=== PATIENT | male | born 1950 | race Caucasian/White ===

== ENCOUNTER → 2018-01-19 | Outpatient (CLI) | payer OTHER | LOC: LAB SHORT 12:13 → LAB EV 12:13 | DX: N30.01 Acute cystitis with hematuria (principal) | CPT/HCPCS: 87086 ==

== ENCOUNTER → 2019-01-16 | Outpatient (CLI) | payer OTHER | LOC: LAB 14:47 → LAB SHORT 14:47 | DX: N39.0 Urinary tract infection, site not specified (principal) | CPT/HCPCS: 87077; 87086; 87186 ==

== ENCOUNTER → 2020-07-18 | Outpatient (CLI) | payer OTHER ==
[2020-07-20 13:36] LABS: CORONAVIRUS (COVID19) CSH-NRL Negative (Negative)
== END ==
LOC: LAB SHORT 11:15
PROVIDERS: Family Medicine
DX: Z20.828 Contact with and (suspected) exposure to other viral communicable diseases (principal)
CPT/HCPCS: U0003

== ENCOUNTER → 2020-09-06 | Outpatient (CLI) | payer OTHER ==
[2020-09-06 12:11] LABS: BASOPHILS ABSOLUTE AUTO 0.02 K/mm3 (0.00-0.23); BASOPHILS PERCENT AUTO 0 % (0-2); EOSINOPHILS ABSOLUTE AUTO 0.06 K/mm3 (0.00-0.68); EOSINOPHILS PERCENT AUTO 1 % (0-6); Hematocrit 41.3 % (37.0-53.0); Hemoglobin 14.5 g/dL (13.5-17.5); IMMATURE GRAN ABSOLUTE AUTO 0.04 K/mm3 (0.00-0.10); IMMATURE GRAN PERCENT AUTO 1 % (0-1); LYMPHOCYTES ABSOLUTE AUTO 1.29 K/mm3 (0.84-5.20); LYMPHOCYTES PERCENT AUTO 15 % (21-46); MONOCYTES ABSOLUTE AUTO 0.79 K/mm3 (0.16-1.47); MONOCYTES PERCENT AUTO 9 % (4-13); Mean Corpuscular HGB 30.5 pg (26.0-34.0); Mean Corpuscular HGB Conc 35.1 g/dL (31.5-36.5); Mean Corpuscular Volume 87 fL (80-100); Mean Platelet Volume 9.7 fL (9.1-12.4); NEUTROPHILS ABSOLUTE AUTO 6.62 K/mm3 (1.96-9.15); NEUTROPHILS PERCENT AUTO 75 % (41-73); Platelet Count 216 K/mm3 (150-400); RDW Coefficient Variation 12.5 % (11.7-14.2); RDW Standard Deviation 39.8 fL (35.1-46.3); Red Blood Cell Count 4.75 M/mm3 (4.30-5.90); White Blood Cell Count 8.82 K/mm3 (4.00-11.30)
[2020-09-06 12:18] LABS: Albumin, Blood 3.8 g/dL (3.4-5.0); Anion Gap 10 mmol/L (6-16); Blood Urea Nitrogen 23 mg/dL (8-24); Bun/Creatinine Ratio 15.9 (12.0-20.0); CO2, Blood 25 mmol/L (21-32); Calcium, Blood 8.9 mg/dL (8.5-10.1); Chloride, Blood 103 mmol/L (98-108); Creatinine, Blood 1.45 mg/dL (0.60-1.20); Glomerular Filtration Rate 48 (60-); Glucose, Blood 109 mg/dL (70-99); Magnesium, Blood 1.8 mg/dL (1.6-2.4); Phosphorus, Blood 2.9 mg/dL (2.5-4.9); Potassium, Blood 4.2 mmol/L (3.5-5.5); Sodium, Blood 138 mmol/L (136-145)
== END ==
LOC: LAB 12:04 → LAB SHORT 12:04
PROVIDERS: Chiropractor
DX: N13.30 Unspecified hydronephrosis (principal); N39.0 Urinary tract infection, site not specified
CPT/HCPCS: 80069; 83735; 85025; 87077; 87086; 87186

== ENCOUNTER → 2021-04-12 | Outpatient (CLI) | payer OTHER | LOC: LAB SHORT 15:00 | DX: R30.9 Painful micturition, unspecified (principal) | CPT/HCPCS: 87077; 87086; 87186 ==

== ENCOUNTER → 2021-04-26 | Outpatient (CLI) | payer OTHER | END | disposition home or self-care (01) | LOC: LAB SHORT 12:04 | DX: N39.0 Urinary tract infection, site not specified (principal) | CPT/HCPCS: 87086 ==

== ENCOUNTER → 2022-03-19 | Outpatient (CLI) | payer OTHER ==
[~2022-03-19] MED LIST: CEPH250A PO; LOSA25 PO; Percocet 5-3251 EACH PO
[2022-03-19 13:37] LABS: Bun/Creatinine Ratio 16.4 (12.0-20.0); Calcium, Blood 9.2 mg/dL (8.5-10.1); Creatinine, Blood 1.65 mg/dL (0.60-1.20); Potassium, Blood 4.5 mmol/L (3.5-5.5)
== END | disposition home or self-care (01) ==
LOC: LAB SHORT 11:09 → LAB FUT 05-08 13:35
PROVIDERS: Urology
DX: N13.30 Unspecified hydronephrosis (principal)
CPT/HCPCS: 36415; 80048

== ENCOUNTER 2023-01-22 04:42 | Day surgery (SDC) | payer OTHER | END 2023-01-22 22:47 | disposition home or self-care (01) | LOC: WOUND 04:42 | DX: T81.31XD Disruption of external operation (surgical) wound, not elsewhere classified, subsequent encounter (principal); L97.112 Non-pressure chronic ulcer of right thigh with fat layer exposed; S71.101D Unspecified open wound, right thigh, subsequent encounter; Z89.611 Acquired absence of right leg above knee; Z85.51 Personal history of malignant neoplasm of bladder; X58.XXXD Exposure to other specified factors, subsequent encounter; Y83.9 Surgical procedure, unspecified as the cause of abnormal reaction of the patient, or of later complication, without mention of misadventure at the time of the procedure | CPT/HCPCS: A9270 ==

== ENCOUNTER 2023-01-29 02:03 | Day surgery (SDC) | payer OTHER | END 2023-01-29 22:54 | disposition home or self-care (01) | LOC: WOUND 02:03 | DX: T87.9 Unspecified complications of amputation stump (principal); S31.103D Unspecified open wound of abdominal wall, right lower quadrant without penetration into peritoneal cavity, subsequent encounter; L97.112 Non-pressure chronic ulcer of right thigh with fat layer exposed; S71.101D Unspecified open wound, right thigh, subsequent encounter; Z89.611 Acquired absence of right leg above knee; Z85.51 Personal history of malignant neoplasm of bladder | CPT/HCPCS: A9270 ==

== ENCOUNTER 2023-02-05 04:13 | Day surgery (SDC) | payer OTHER | END 2023-02-05 23:08 | disposition home or self-care (01) | LOC: WOUND 04:13 | DX: T87.9 Unspecified complications of amputation stump (principal); S31.103D Unspecified open wound of abdominal wall, right lower quadrant without penetration into peritoneal cavity, subsequent encounter; L97.112 Non-pressure chronic ulcer of right thigh with fat layer exposed; S71.101D Unspecified open wound, right thigh, subsequent encounter; Z89.611 Acquired absence of right leg above knee; Z85.51 Personal history of malignant neoplasm of bladder | CPT/HCPCS: A9270 ==

== ENCOUNTER 2023-02-12 01:29 | Day surgery (SDC) | payer OTHER | END 2023-02-12 23:20 | disposition home or self-care (01) | LOC: WOUND 01:29 | DX: S31.103D Unspecified open wound of abdominal wall, right lower quadrant without penetration into peritoneal cavity, subsequent encounter (principal); L97.112 Non-pressure chronic ulcer of right thigh with fat layer exposed; S71.101D Unspecified open wound, right thigh, subsequent encounter; Z89.611 Acquired absence of right leg above knee; Z85.51 Personal history of malignant neoplasm of bladder | CPT/HCPCS: G0463 ==

== ENCOUNTER 2023-02-19 02:59 | Day surgery (SDC) | payer OTHER | END 2023-02-19 22:58 | disposition home or self-care (01) | LOC: WOUND 02:59 | DX: S31.103D Unspecified open wound of abdominal wall, right lower quadrant without penetration into peritoneal cavity, subsequent encounter (principal); S71.101D Unspecified open wound, right thigh, subsequent encounter; L97.112 Non-pressure chronic ulcer of right thigh with fat layer exposed; Z89.611 Acquired absence of right leg above knee; Z85.51 Personal history of malignant neoplasm of bladder; X58.XXXD Exposure to other specified factors, subsequent encounter | CPT/HCPCS: G0463 ==

== ENCOUNTER 2023-02-26 02:28 | Day surgery (SDC) | payer OTHER | END 2023-02-26 23:11 | disposition home or self-care (01) | LOC: WOUND 02:28 | DX: S31.103D Unspecified open wound of abdominal wall, right lower quadrant without penetration into peritoneal cavity, subsequent encounter (principal); L97.112 Non-pressure chronic ulcer of right thigh with fat layer exposed; S71.101D Unspecified open wound, right thigh, subsequent encounter; Z89.611 Acquired absence of right leg above knee; Z85.51 Personal history of malignant neoplasm of bladder | CPT/HCPCS: G0463 ==

== ENCOUNTER → 2023-03-19 | Outpatient (CLI) | payer OTHER ==
[2023-03-19 14:29] LABS: C DIFFICILE DNA NEGATIVE (Negative)
== END ==
LOC: LAB 08:30 → LAB SHORT 08:30
PROVIDERS: Physician Assistant
DX: R19.7 Diarrhea, unspecified (principal); N39.0 Urinary tract infection, site not specified
CPT/HCPCS: 87493

== ENCOUNTER 2023-04-09 04:44 | Day surgery (SDC) | payer OTHER | END 2023-04-09 23:00 | disposition home or self-care (01) | LOC: WOUND 04:44 | DX: T81.31XA Disruption of external operation (surgical) wound, not elsewhere classified, initial encounter (principal); L97.112 Non-pressure chronic ulcer of right thigh with fat layer exposed; S71.101D Unspecified open wound, right thigh, subsequent encounter; Z89.611 Acquired absence of right leg above knee; Z85.51 Personal history of malignant neoplasm of bladder; X58.XXXD Exposure to other specified factors, subsequent encounter; Y83.8 Other surgical procedures as the cause of abnormal reaction of the patient, or of later complication, without mention of misadventure at the time of the procedure | CPT/HCPCS: G0463 ==

== ENCOUNTER → 2023-05-06 | Outpatient (CLI) | payer OTHER ==
[2023-05-06 13:12] LABS: Appearance, Urine Hazy (Clear); Bilirubin, Urine Neg (Neg); Blood, Urine 5+ (Neg); Color, Urine Yellow (P-Yellow); Glucose Qualitative, Urine Neg (Neg); Ketones, Urine Neg (Neg); Leukocyte Esterase, Urine 3+ (Neg); Nitrite, Urine Pos (Neg); Protein, Urine 3+ (Neg); Urobilinogen, Urine NORM (Normal)
[2023-05-06 13:19] LABS: Bacteria Many /hpf; Red Blood Cells, Urine 25-50 /hpf (0-2); Squamous Epithelial Cells Rare /hpf (Few); White Blood Cells, Urine 50-100 /hpf (0-5)
== END ==
LOC: LAB SHORT 12:00 → LAB 12:00
PROVIDERS: Family Medicine
DX: N39.0 Urinary tract infection, site not specified (principal)
CPT/HCPCS: 81001; 87086

== ENCOUNTER 2023-05-07 05:06 | Day surgery (SDC) | payer OTHER | END 2023-05-07 23:11 | disposition home or self-care (01) | LOC: WOUND 05:06 | DX: T81.31XD Disruption of external operation (surgical) wound, not elsewhere classified, subsequent encounter (principal); S71.101D Unspecified open wound, right thigh, subsequent encounter; L97.112 Non-pressure chronic ulcer of right thigh with fat layer exposed; Z85.51 Personal history of malignant neoplasm of bladder; Z89.611 Acquired absence of right leg above knee; Y83.8 Other surgical procedures as the cause of abnormal reaction of the patient, or of later complication, without mention of misadventure at the time of the procedure | CPT/HCPCS: G0463 ==

== ENCOUNTER → 2023-07-03 | Outpatient (CLI) | payer OTHER | LOC: LAB SHORT 15:32 → LAB 15:32 | DX: R30.0 Dysuria (principal) | CPT/HCPCS: 87086 ==

== ENCOUNTER → 2023-08-27 | Outpatient (CLI) | payer OTHER ==
[~2023-08-27] MED LIST changes: +CYMBALTA20 M2 PO; +ERGO400 PO; +LOPE2C; +MULVITA; +SIME80CH; +TRAZ50 PO
== END ==
LOC: LAB SHORT 17:05 → LAB 17:05
DX: N39.0 Urinary tract infection, site not specified (principal)
CPT/HCPCS: 87086

== ENCOUNTER → 2023-08-27 | Outpatient (CLI) | payer OTHER ==
[2023-08-27 18:42] LABS: BASOPHILS ABSOLUTE AUTO 0.03 K/mm3 (0.00-0.23); BASOPHILS PERCENT AUTO 0 % (0-2); EOSINOPHILS ABSOLUTE AUTO 0.09 K/mm3 (0.00-0.68); EOSINOPHILS PERCENT AUTO 1 % (0-6); Hemoglobin 17.2 g/dL (13.5-17.5); IMMATURE GRAN ABSOLUTE AUTO 0.07 K/mm3 (0.00-0.10); IMMATURE GRAN PERCENT AUTO 1 % (0-1); LYMPHOCYTES ABSOLUTE AUTO 0.86 K/mm3 (0.84-5.20); LYMPHOCYTES PERCENT AUTO 6 % (21-46); MONOCYTES PERCENT AUTO 7 % (4-13); Mean Corpuscular HGB 29.2 pg (26.0-34.0); Mean Corpuscular HGB Conc 34.4 g/dL (31.5-36.5); Mean Corpuscular Volume 85 fL (80-100); NEUTROPHILS ABSOLUTE AUTO 12.85 K/mm3 (1.96-9.15); NEUTROPHILS PERCENT AUTO 86 % (41-73); Platelet Count 328 K/mm3 (150-400); RDW Coefficient Variation 13.3 % (11.7-14.2); RDW Standard Deviation 40.6 fL (35.1-46.3)
[2023-08-27 18:50] LABS: Albumin/Globulin Ratio 0.8 (0.8-1.8); Bilirubin, Total 0.9 mg/dL (0.1-1.0); Bun/Creatinine Ratio 9.9 (12.0-20.0); Creatinine, Blood 2.72 mg/dL (0.60-1.20); Globulin, Blood 4.8 g/dL (2.2-4.0); Potassium, Blood 3.8 mmol/L (3.5-5.5); Total Protein, Blood 8.8 g/dL (6.4-8.2)
== END | disposition home or self-care (01) ==
LOC: LAB SHORT 18:34 → LAB 18:34
PROVIDERS: Physician Assistant Medical
DX: R11.2 Nausea with vomiting, unspecified (principal)
CPT/HCPCS: 80053; 85025

== ENCOUNTER 2023-08-28 04:38 | Inpatient (IN) | payer OTHER ==
[~2023-08-28] VITALS: Ht 188 cm; Wt 79.4 kg
[~2023-08-28 04:38] MED LIST changes: -CYMBALTA20 M2 PO; -ERGO400 PO; -LOPE2C; -MULVITA; -SIME80CH; -TRAZ50 PO
[2023-08-28 05:47] LABS: Source, Urine Clean Catch
[2023-08-28 05:51] LABS: Appearance, Urine Cloudy (Clear); Bilirubin, Urine Neg (Neg); Blood, Urine 3+ (Neg); Color, Urine Amber (P-Yellow); Glucose Qualitative, Urine Neg (Neg); Ketones, Urine Neg (Neg); Leukocyte Esterase, Urine 3+ (Neg); Nitrite, Urine Neg (Neg); Protein, Urine 4+ (Neg); Urobilinogen, Urine NORM (Normal)
[2023-08-28 06:07] LABS: BASOPHILS ABSOLUTE AUTO 0.01 K/mm3 (0.00-0.23); BASOPHILS PERCENT AUTO 0 % (0-2); EOSINOPHILS PERCENT AUTO 0 % (0-6); Hematocrit 48.2 % (37.0-53.0); Hemoglobin 16.9 g/dL (13.5-17.5); IMMATURE GRAN ABSOLUTE AUTO 0.08 K/mm3 (0.00-0.10); IMMATURE GRAN PERCENT AUTO 1 % (0-1); LYMPHOCYTES ABSOLUTE AUTO 0.78 K/mm3 (0.84-5.20); LYMPHOCYTES PERCENT AUTO 5 % (21-46); MONOCYTES ABSOLUTE AUTO 0.97 K/mm3 (0.16-1.47); MONOCYTES PERCENT AUTO 6 % (4-13); Mean Corpuscular HGB Conc 35.1 g/dL (31.5-36.5); Mean Corpuscular Volume 83 fL (80-100); Mean Platelet Volume 9.8 fL (9.1-12.4); NEUTROPHILS PERCENT AUTO 88 % (41-73); Platelet Count 335 K/mm3 (150-400); RDW Coefficient Variation 13.2 % (11.7-14.2); RDW Standard Deviation 39.4 fL (35.1-46.3); Red Blood Cell Count 5.83 M/mm3 (4.30-5.90); White Blood Cell Count 15.34 K/mm3 (4.00-11.30)
[2023-08-28 06:07] LABS: Bacteria Many /hpf; Squamous Epithelial Cells Few /hpf (Few); White Blood Cells, Urine TNTC /hpf (0-5)
[2023-08-28 06:08] LABS: Amorphous Light (0-Heavy); Hyaline Casts 0-2 /lpf (0-2); Mucus Light (0-Heavy)
[2023-08-28] MEDS ORDERED: CefTRIAXone Sodium 1,000 MG in NS 50 ML IV ONE (06:15)
[2023-08-28] MEDS ORDERED: NS 1,000 ML IV SCH ×3 (06:15→14:30)
[2023-08-28 06:21] LABS: Magnesium, Blood 2.1 mg/dL (1.6-2.4)
[2023-08-28 06:22] LABS: Albumin/Globulin Ratio 0.8 (0.8-1.8); Bun/Creatinine Ratio 16.8 (12.0-20.0); Calcium, Blood 10.6 mg/dL (8.5-10.1); Creatinine, Blood 2.02 mg/dL (0.60-1.20); Globulin, Blood 4.8 g/dL (2.2-4.0); Total Protein, Blood 8.8 g/dL (6.4-8.2)
[2023-08-28] MEDS ORDERED: Morphine Sulfate 4 MG/1 ML Injection IV ONE (06:30)
[2023-08-28] MEDS ORDERED: Ondansetron HCl 2 MG / ML 2ML Vial IV ONE ×2 (06:30→07:35)
[2023-08-28] MEDS ORDERED: CYMBALTA20 M2 PO (07:43)
[2023-08-28] MEDS ORDERED: TRAZ50 PO (07:43)
[2023-08-28] MEDS ORDERED: LOPE2C (08:05)
[2023-08-28] MEDS ORDERED: MULVITA (08:06)
[2023-08-28] MEDS ORDERED: ERGO400 PO (08:06)
[2023-08-28] MEDS ORDERED: SIME80CH (08:06)
[2023-08-28] MEDS ORDERED: FLU VACC QS2023-24(6MOS UP)/PF 60 MCG/0.5 ML SYRINGE IM SCH (08:40)
[2023-08-28] MEDS ORDERED: Metoclopramide HCl 5MG / ML 2ML Vial IV PRN (08:45)
[2023-08-28] MEDS ORDERED: Ondansetron HCl 2 MG / ML 2ML Vial IV PRN (08:45)
[2023-08-28] MEDS ORDERED: NS 1,000 ML IV ONE (08:59)
[2023-08-28] MEDS ORDERED: Pantoprazole Sodium 40 MG Injection IV SCH (09:00)
[2023-08-28 12:04] VITALS: BP 145/102
[2023-08-28] MEDS ORDERED: Promethazine HCl 25 MG Tab PO PRN (12:25)
[2023-08-28] MEDS ORDERED: Morphine Sulfate 4 MG/1 ML Injection IV PRN (12:25)
--- NOTE | 2023-08-28 16:34 | NUR ---
SHIFT SUMMARY PT AOX4, VSS/RA, NPO, NS @ 75 MLS/HR, 20G RAC & LAC, SURGICAL CONSULT CALLED, FAMILY BEDSIDE. WILL REPORT TO ONCOMING NOC RN.
[2023-08-28 16:46] VITALS: BP 125/91
[2023-08-28 20:13] VITALS: BP 162/97
--- NOTE | 2023-08-28 20:30 | NUR ---
NG TUBE NG TUBE PLACED, PT TOLERATED WELL. X-RAY TAKEN, DR CALLED AND NOTIFIED OF X-RAY. NG TUBE DRAINING GREEN BILE OUT.
[2023-08-29 04:24] VITALS: BP 128/94
[2023-08-29 04:47] LABS: BASOPHILS ABSOLUTE AUTO 0.02 K/mm3 (0.00-0.23); BASOPHILS PERCENT AUTO 0 % (0-2); EOSINOPHILS ABSOLUTE AUTO 0.04 K/mm3 (0.00-0.68); EOSINOPHILS PERCENT AUTO 0 % (0-6); Hematocrit 42.1 % (37.0-53.0); Hemoglobin 14.4 g/dL (13.5-17.5); IMMATURE GRAN ABSOLUTE AUTO 0.03 K/mm3 (0.00-0.10); IMMATURE GRAN PERCENT AUTO 0 % (0-1); LYMPHOCYTES ABSOLUTE AUTO 1.23 K/mm3 (0.84-5.20); LYMPHOCYTES PERCENT AUTO 12 % (21-46); MONOCYTES ABSOLUTE AUTO 0.81 K/mm3 (0.16-1.47); MONOCYTES PERCENT AUTO 8 % (4-13); Mean Corpuscular HGB 29.3 pg (26.0-34.0); Mean Corpuscular HGB Conc 34.2 g/dL (31.5-36.5); Mean Corpuscular Volume 86 fL (80-100); Mean Platelet Volume 9.1 fL (9.1-12.4); NEUTROPHILS PERCENT AUTO 79 % (41-73); Platelet Count 242 K/mm3 (150-400); RDW Coefficient Variation 13.6 % (11.7-14.2); RDW Standard Deviation 42.6 fL (35.1-46.3); Red Blood Cell Count 4.91 M/mm3 (4.30-5.90); White Blood Cell Count 9.93 K/mm3 (4.00-11.30)
[2023-08-29 05:07] LABS: Albumin, Blood 3.2 g/dL (3.4-5.0); Albumin/Globulin Ratio 0.8 (0.8-1.8); Bilirubin, Total 0.7 mg/dL (0.1-1.0); Bun/Creatinine Ratio 17.8 (12.0-20.0); C-REACTIVE PROTEIN, EXT RANGE 0.874 mg/dL (0.000-0.300); Calcium, Blood 9.1 mg/dL (8.5-10.1); Creatinine, Blood 1.52 mg/dL (0.60-1.20); Globulin, Blood 3.8 g/dL (2.2-4.0); Phosphorus, Blood 3.2 mg/dL (2.5-4.9); Potassium, Blood 3.5 mmol/L (3.5-5.5)
--- NOTE | 2023-08-29 05:09 | NUR ---
SHIFT SUMMARY PT ABLE TO REST ON AND OFF DURING THE NIGHT. PAIN MANAGED PER EMAR. NG TUBE PUT OUT 100ML OF GREEN OUTPUT. NEPHROSTOMY HAVING GOOD OUTPUT. VSS. PT HAD A COUPLE ICE CHIPS THIS MORNING. NO OTHER CONCERNS AT THIS TIME. CALL LIGHT WITHIN REACH.
[2023-08-29] MEDS ORDERED: CefTRIAXone 1000 MG Vial ONE (06:12)
[2023-08-29] MEDS ORDERED: CefTRIAXone Sodium 1,000 MG in NS 50 ML IV SCH (07:00)
[2023-08-29 07:19] VITALS: BP 130/87
[2023-08-29] MEDS ORDERED: Morphine Sulfate 4 MG/1 ML Injection IV PRN (07:25)
[2023-08-29] MEDS ORDERED: Heparin Sodium,Porcine 5,000 UNIT/0.5 ML SDV SC SCH (09:00)
[2023-08-29 15:37] VITALS: BP 160/91
--- NOTE | 2023-08-29 17:05 | NUR ---
SHIFT SUMMARY PT A&OX4, VSS/RA, BLIND/SEES SHADOWS, NEPHROSTOMY TUBES PEGGY WITH YELLOW URINE OUTPUT, PAIN MANAGED WITH MORPHINE 4MG IV Q3P, NAUSEA TREATED WITH ZOFRAN IV AND PHENERGAN PO X1 WHILE NGT CLAMPED FOR SBFT. NGT 1100 MLS OUT AT 1730, PT HAD BEEN CLAMPED T/O SHIFT FOR SBFT, DR SHEPPARD ROUNDED APPROX 1645 AND STATED PT COULD BE UNCLAMPED, DARK GREEN OUTPUT. IVF @ 75 MLS/HR, ABX ROCEPHIN DAILY. AMB STAND PIVOT WITH R AKA/REPOSITIONS SELF. PLAN FOR FOLLOWUP XRAY FRIDAY MORNING. FAMILY BEDSIDE. WILL REPORT TO ONCOMING NOC RN.
[2023-08-29 19:59] VITALS: BP 139/93
[2023-08-30 03:33] VITALS: BP 142/92
--- NOTE | 2023-08-30 04:22 | NUR ---
SHIFT SUMMARY PT ABLE TO REST T/O NIGHT. PT HAD OUTPUT OF 900ML IN THE NG TUBE AT BEGINING OF SHIFT, HAS HAD VERY LITTLE SINCE THEN. PAIN HAS BEEN MANAGED PER EMAR. PT TAKING IN SMALL AMOUNTS OF ICE CHIPS. DENIES ANY N/V. NEPH'S HAVING GOOD OUTPUT. NO OTHER CONCERNS AT THIS TIME. CALL LIGHT VIN REACH
[2023-08-30 06:16] LABS: BASOPHILS ABSOLUTE AUTO 0.03 K/mm3 (0.00-0.23); BASOPHILS PERCENT AUTO 0 % (0-2); EOSINOPHILS ABSOLUTE AUTO 0.03 K/mm3 (0.00-0.68); EOSINOPHILS PERCENT AUTO 0 % (0-6); Hematocrit 45.8 % (37.0-53.0); Hemoglobin 15.2 g/dL (13.5-17.5); IMMATURE GRAN ABSOLUTE AUTO 0.04 K/mm3 (0.00-0.10); IMMATURE GRAN PERCENT AUTO 0 % (0-1); LYMPHOCYTES ABSOLUTE AUTO 1.08 K/mm3 (0.84-5.20); LYMPHOCYTES PERCENT AUTO 10 % (21-46); MONOCYTES ABSOLUTE AUTO 0.84 K/mm3 (0.16-1.47); MONOCYTES PERCENT AUTO 8 % (4-13); Mean Corpuscular HGB 29.2 pg (26.0-34.0); Mean Corpuscular HGB Conc 33.2 g/dL (31.5-36.5); Mean Corpuscular Volume 88 fL (80-100); Mean Platelet Volume 9.2 fL (9.1-12.4); NEUTROPHILS ABSOLUTE AUTO 8.48 K/mm3 (1.96-9.15); NEUTROPHILS PERCENT AUTO 81 % (41-73); Platelet Count 252 K/mm3 (150-400); RDW Coefficient Variation 13.6 % (11.7-14.2)
[2023-08-30 06:46] LABS: Albumin, Blood 3.5 g/dL (3.4-5.0); Anion Gap 1 mmol/L (6-16); Blood Urea Nitrogen 33 mg/dL (8-24); Bun/Creatinine Ratio 23.6 (12.0-20.0); CO2, Blood 32 mmol/L (21-32); Calcium, Blood 9.8 mg/dL (8.5-10.1); Chloride, Blood 110 mmol/L (98-108); Glomerular Filtration Rate 54 (60-); Glucose, Blood 113 mg/dL (70-99); Phosphorus, Blood 2.7 mg/dL (2.5-4.9); Potassium, Blood 3.6 mmol/L (3.5-5.5); Sodium, Blood 143 mmol/L (136-145)
[2023-08-30 07:31] VITALS: BP 129/84
--- NOTE | 2023-08-30 11:08 | NUR ---
SUPRAPUBIC CATHETER PT REPORTS FLUSHING SUPRAPUBIC CATHETER EVERY OTHER DAY, DISCUSSED WITH ATTENDING WHO SAID WE CAN FLUSH DAILY WHILE PATIENT IS HERE. FLUSH WITH 10ML NS AND DRAW BACK. PT AND HIS REPORT THAT SOMETIMES THIS DOES NOT PULL BACK BUT WILL LEAK OUT OF THE FISTULA UNDER THE BANDAGE ON THE RIGHT SIDE OF HIS WAISTEBAND. DRESSING CHANGED WELL
[2023-08-30] MEDS ORDERED: Benzocaine Oral Spray 0.5ML UD MT PRN (11:40)
[2023-08-30] MEDS ORDERED: Metoclopramide HCl 5MG / ML 2ML Vial IV PRN (14:10)
[2023-08-30 15:46] VITALS: BP 138/96
[2023-08-30 15:48] VITALS: BP 128/92
[2023-08-30 15:49] VITALS: BP 139/94
--- NOTE | 2023-08-30 19:08 | NUR ---
SHIFT SUMMARY S/P SBO, A/OX4, VSS, TOLERATING ICE CHIPS AND HAS NG TUBE IN PLACE, REPORTING PAIN WITH NG AND ABDOMEN BUT TOLERABLE WITH CURRENT PAIN MEDS, MOSTLY BLIND BUT ABLE TO SEE MAJOR MOVEMENT, PT HAVING SOME FLATUS BUT NO BM TODAY, REGLAN STARTED FOR GI MOTILITY, HIS WAS CONCERNED ABOUT HIM BECOMING AGITATED WITH REGLAN BUT NO AGITATION WAS NOTED AFTER ADMINISTRATION. CALL LIGHT IN REACH.
[2023-08-30 19:16] VITALS: BP 132/88
[2023-08-31 03:24] VITALS: BP 144/88
--- NOTE | 2023-08-31 06:15 | NUR ---
SHIFT SUMMARY PT IS HERE FOR A BOWEL OBSTRUCTION FOR WHICH HE HAS AN NGT IN PLACE AT [facility]. PT'S PAIN MEDICATED PER EMAR THIS SHIFT WITH GOOD RELIEF PER PT'S REPORT. PT'S SUPRAPUBIC CATHETER STILL HAS MINIMAL OUTPUT WITH THE NEPHROSTOMY TUBES PRODUCING GOOD URINE OUTPUT DURING THIS SHIFT. NO ACUTE EVENTS OCCURRED OVERNIGHT, PT'S VITAL SIGNS WERE STABLE. BED IS IN LOWEST POSITION, CALL LIGHT IS WITHIN REACH.
[2023-08-31 06:38] LABS: BASOPHILS ABSOLUTE AUTO 0.03 K/mm3 (0.00-0.23); BASOPHILS PERCENT AUTO 0 % (0-2); EOSINOPHILS ABSOLUTE AUTO 0.04 K/mm3 (0.00-0.68); EOSINOPHILS PERCENT AUTO 1 % (0-6); Hematocrit 43.3 % (37.0-53.0); Hemoglobin 14.2 g/dL (13.5-17.5); IMMATURE GRAN ABSOLUTE AUTO 0.03 K/mm3 (0.00-0.10); IMMATURE GRAN PERCENT AUTO 0 % (0-1); LYMPHOCYTES ABSOLUTE AUTO 1.08 K/mm3 (0.84-5.20); LYMPHOCYTES PERCENT AUTO 15 % (21-46); MONOCYTES ABSOLUTE AUTO 0.58 K/mm3 (0.16-1.47); MONOCYTES PERCENT AUTO 8 % (4-13); Mean Corpuscular HGB 29.3 pg (26.0-34.0); Mean Corpuscular HGB Conc 32.8 g/dL (31.5-36.5); Mean Corpuscular Volume 90 fL (80-100); Mean Platelet Volume 9.8 fL (9.1-12.4); NEUTROPHILS ABSOLUTE AUTO 5.68 K/mm3 (1.96-9.15); NEUTROPHILS PERCENT AUTO 76 % (41-73); Platelet Count 194 K/mm3 (150-400); RDW Coefficient Variation 13.3 % (11.7-14.2); RDW Standard Deviation 43.7 fL (35.1-46.3); Red Blood Cell Count 4.84 M/mm3 (4.30-5.90); White Blood Cell Count 7.44 K/mm3 (4.00-11.30)
[2023-08-31 07:05] LABS: Albumin, Blood 3.1 g/dL (3.4-5.0); Anion Gap 2 mmol/L (6-16); Blood Urea Nitrogen 33 mg/dL (8-24); Bun/Creatinine Ratio 27.5 (12.0-20.0); CO2, Blood 29 mmol/L (21-32); Calcium, Blood 9.3 mg/dL (8.5-10.1); Chloride, Blood 115 mmol/L (98-108); Glomerular Filtration Rate 65 (60-); Glucose, Blood 108 mg/dL (70-99); Magnesium, Blood 2.3 mg/dL (1.6-2.4); Phosphorus, Blood 2.4 mg/dL (2.5-4.9); Potassium, Blood 3.5 mmol/L (3.5-5.5); Sodium, Blood 146 mmol/L (136-145)
[2023-08-31 07:15] VITALS: BP 124/84
[2023-08-31] MEDS ORDERED: Metoclopramide HCl 5MG / ML 2ML Vial IV SCH ×2 (11:30→16:30)
[2023-08-31 18:34] VITALS: BP 192/108
[2023-08-31] MEDS ORDERED: HydrALAZINE HCl 20 MG / ML 1ML Vial IV PRN (18:45)
[2023-08-31 18:47] VITALS: BP 192/108
[2023-08-31] MEDS ORDERED: HydrALAZINE HCl 20 MG / ML 1ML Vial ONE (18:47)
[2023-08-31 19:28] VITALS: BP 170/101
--- NOTE | 2023-08-31 19:28 | NUR ---
SHIFT SUMMARY S/P SBO, A/OX4, VSS, TLERATING PO INTAKE UNTIL DINNER, SHORTLY AFTER DINNER HE BECAME NAUSEATED AND HAD 600 EMESIS, NG TUBE SET TO LIS AGAIN AND WILL ATTEMPT CLAMING AGAIN. PT BECAME VERY ANXIOUS AFTER GETTING HIS FIRST 10MG DOSE OF REGLAN WHICH WAS SHORTLY BEFORE HIS EPISODE OF EMESIS, PT REQUESTED TO NOT GET HIS HS DOSE TONIGHT AND ASKED ABOUT GOIGN BACK DOWN TO THE 5MG DOSE TOMORROW, THIS INFORMATION WAS GIVEN TO NOC RN. NO OTHER EVENTS THIS SHIFT, CALL LIGHT IN REACH.
[2023-08-31] MEDS ORDERED: HYDROmorphone HCl/Pf 1MG SYR IV ONE (21:50)
[2023-08-31] MEDS ORDERED: Naloxone HCl 0.4MG / ML 1ML Vial IV PRN (21:55)
[2023-09-01] VITALS: BP 158/107
[2023-09-01 03:51] VITALS: BP 135/90
--- NOTE | 2023-09-01 06:08 | NUR ---
SHIFT SUMMARY PT IS HERE DIAGNOSED WITH A BOWEL OBSTRUCTION, WHICH ACCORDING TO THE FOLLOW THROUGH CONDUCTED ON 08/30/23, COULD BE GASTROPARESIS, ILEUS, AND/OR AN SBO. PT IS HESITANT TO TAKE IV REGLAN DURING THE DAY YESTERDAY, 08/31/23, HE VOMITED AFTER RECEIVING IT. DAYSHIFT RN RECOMMENDED REDUCING THE DOSAGE FROM 10MG DOWN TO 5MG. PT HAS BEEN ADVANCED TO A CLEAR LIQUID DIET AND HIS NGT WAS CLAMPED LAST NIGHT AT 1940. THE PT STARTED EXPERIENCING NAUSEA AND VOMITED AT 5 AND LIWS WAS RE-ESTABLISHED. NGT WAS PUT TO GRAVITY AT 0130 ON A TRIAL RUN BASIS, BUT AGAIN, THE PT BECAME NAUSOUS AND VOMITED AT 0350 AND THE LIWS WAS TURNED ON ONCE AGAIN. OF NOTE, PT'S LEFT ARM AC IV SITE WAS REMOVED D/T LEAKING UPON IV PAIN MEDICATION ADMINISTRATION. MED WASTED AND ANOTHER DOSE PULLED WITH DEMETRIUS HOSKINS. ASIDE FROM BEING NAUSEOUS AND VOMITING, NO OTHER ACUTE EVENTS OCCURRED OVERNIGHT. BED IS IN LOWEST POSITION, CALL LIGHT IS WITHIN REACH.
[2023-09-01 07:01] LABS: BASOPHILS ABSOLUTE AUTO 0.02 K/mm3 (0.00-0.23); BASOPHILS PERCENT AUTO 0 % (0-2); EOSINOPHILS ABSOLUTE AUTO 0.01 K/mm3 (0.00-0.68); EOSINOPHILS PERCENT AUTO 0 % (0-6); Hemoglobin 14.2 g/dL (13.5-17.5); IMMATURE GRAN ABSOLUTE AUTO 0.02 K/mm3 (0.00-0.10); IMMATURE GRAN PERCENT AUTO 0 % (0-1); LYMPHOCYTES ABSOLUTE AUTO 0.72 K/mm3 (0.84-5.20); LYMPHOCYTES PERCENT AUTO 10 % (21-46); MONOCYTES ABSOLUTE AUTO 0.65 K/mm3 (0.16-1.47); MONOCYTES PERCENT AUTO 9 % (4-13); Mean Corpuscular HGB 29.4 pg (26.0-34.0); Mean Corpuscular HGB Conc 33.8 g/dL (31.5-36.5); Mean Corpuscular Volume 87 fL (80-100); Mean Platelet Volume 9.7 fL (9.1-12.4); NEUTROPHILS ABSOLUTE AUTO 6.06 K/mm3 (1.96-9.15); NEUTROPHILS PERCENT AUTO 81 % (41-73); Platelet Count 233 K/mm3 (150-400); RDW Coefficient Variation 13.4 % (11.7-14.2); RDW Standard Deviation 42.3 fL (35.1-46.3); Red Blood Cell Count 4.83 M/mm3 (4.30-5.90); White Blood Cell Count 7.48 K/mm3 (4.00-11.30)
[2023-09-01 07:24] LABS: Bun/Creatinine Ratio 26.2 (12.0-20.0); Calcium, Blood 9.3 mg/dL (8.5-10.1); Creatinine, Blood 1.22 mg/dL (0.60-1.20); Potassium, Blood 3.5 mmol/L (3.5-5.5)
[2023-09-01 07:43] VITALS: BP 122/82
--- NOTE | 2023-09-01 08:29 | NUR ---
NG TUBE DISCUSSED NG TUBE WITH THE PATIENT DURING ASSESSMENT, MULTIPLE EMESIS OVER NIGHT FOLLOWING HIS LAST FULL DOSE OF REGLAN, PT PROVIDED CLEAR BREAKFAST TRAY AND NG TUBE WAS CLAMPED (PT INFORMED OF THIS), DISCUSSED KEEPING IT CLAMPED VS PUTTING IT BACK TO LIS, PT AGREEABLE TO KEEPING IT CLAMPED AT THIS TIME AND FOREGOING THIS MORNINGS DOSE OF REGLAN. PT REPORTS HAVING A BM THIS AM RIGHT AT SHIFT CHANGE AND DENIES NAUSEA AT THIS TIME, HE HAS NOW COMPLETED HIS BREAKFAST TRAY AND CONTINUES TO HAVE NO NAUSEA. WILL CONTINUE TO MONITOR AND CLAMP IF NAUSEA RETURNS.
[2023-09-01 15:35] VITALS: BP 151/99
--- NOTE | 2023-09-01 17:31 | NUR ---
SHIFT SUMMARY S/P SBO, A/OX4, VSS, TOLERATING CLEARS, NG TUBE WAS CLAMED THIS AM JUST BEFORE BREAKFAST AND HE HAS BEEN TOLERATING HIS CLEAR DIET WELL WITH NO N/V, MULTIPLE BM THIS SHIFT, REPEAT CT DONE (SEE IMAGING), PT ABLE TO SELF TRANSFER TO HIS WC TO GET TO THE BATHROOM AND BACK, HE AMBULATED IN THE HALLS WITH A FWW WITH HIS WALKING ABOUT 80 FEET. NO ACUTE EVENTS THIS SHIFT, CALL LIGHT IN REACH.
[2023-09-01 19:24] VITALS: BP 171/98
[2023-09-02 05:50] VITALS: BP 146/98
--- NOTE | 2023-09-02 06:02 | NUR ---
SHIFT SUMMARY PT IS HERE WITH ABD PAIN, N/V, UTI, AND BOWEL OBSTRUCTION. PT HAD A GOOD NIGHT WITH HIS NGT REMAINING CLAMPED THE ENTIRE SHIFT. NO NAUSEA OR VOMITING WITNESSED OR REPORTED. PT TOLERATING FLUIDS W/O COMPLAINT AT THIS TIME. PT'S PAIN MANAGED ONLY ONCE TOWARDS THE BEGINNING OF THE SHIFT W/NO OTHER ACUTE EVENTS OCCURRING OVERNIGHT. GAVE SOME HYDRALAZINE AT THE BEGINNING OF THE SHIFT D/T ELEVATED BLOOD PRESSURE, BUT ALL OTHER VITAL SIGNS HAVE BEEN STABLE. BED IS IN LOWEST POSITION, CALL LIGHT IS WITHIN REACH.
[2023-09-02 06:21] LABS: BASOPHILS ABSOLUTE AUTO 0.01 K/mm3 (0.00-0.23); BASOPHILS PERCENT AUTO 0 % (0-2); EOSINOPHILS PERCENT AUTO 2 % (0-6); Hematocrit 41.1 % (37.0-53.0); Hemoglobin 14.1 g/dL (13.5-17.5); IMMATURE GRAN ABSOLUTE AUTO 0.02 K/mm3 (0.00-0.10); IMMATURE GRAN PERCENT AUTO 0 % (0-1); LYMPHOCYTES ABSOLUTE AUTO 0.95 K/mm3 (0.84-5.20); LYMPHOCYTES PERCENT AUTO 17 % (21-46); MONOCYTES PERCENT AUTO 9 % (4-13); Mean Corpuscular HGB 29.6 pg (26.0-34.0); Mean Corpuscular HGB Conc 34.3 g/dL (31.5-36.5); Mean Corpuscular Volume 86 fL (80-100); Mean Platelet Volume 9.6 fL (9.1-12.4); NEUTROPHILS ABSOLUTE AUTO 4.11 K/mm3 (1.96-9.15); NEUTROPHILS PERCENT AUTO 72 % (41-73); Platelet Count 188 K/mm3 (150-400); RDW Coefficient Variation 13.2 % (11.7-14.2); RDW Standard Deviation 41.1 fL (35.1-46.3); Red Blood Cell Count 4.77 M/mm3 (4.30-5.90); White Blood Cell Count 5.69 K/mm3 (4.00-11.30)
[2023-09-02 06:53] LABS: Bun/Creatinine Ratio 25.2 (12.0-20.0); Calcium, Blood 8.6 mg/dL (8.5-10.1); Creatinine, Blood 1.03 mg/dL (0.60-1.20); Potassium, Blood 3.3 mmol/L (3.5-5.5)
[2023-09-02 07:02] VITALS: BP 125/89
[2023-09-02] MEDS ORDERED: Potassium Chloride 20 MEQ TabCR PO ONE (10:00)
--- NOTE | 2023-09-02 11:00 | NUR ---
WHEN PATIENTS ARRIVED SHE WAS NOTIFIED THAT PT REPORTED FEELING LIKE HIS RIGHT NEPHROSTOMY TUBE WAS TUGGED WHEN PT ROLLED OVER. SHE STATED SHE DID NOT KNOW THE LENGTH THAT WAS OUTSIDE OF THE BODY BUT SHE STATED THE TUBE APPEARED TO BE IN THE CORRECT LOCATION.
--- NOTE | 2023-09-02 13:56 | NUR ---
NG TUBE REMOVED AT 1250. PT TOLERATED WELL. PT REPORTS HE HAS BEEN ABLE TO PASS FLATUS AND HAVE BOWEL MOVEMENTS. HE IS ALSO TOLERATING PO.
[2023-09-02 16:12] VITALS: BP 135/87
[2023-09-02 16:13] VITALS: BP 135/87
--- NOTE | 2023-09-02 17:00 | NUR ---
ATTEMPTED TO FLUSH SUPRAPUBIC CATH PER ORDER. PT DECLINED TO ALLOW RN TO FLUSH SUPRAPUBIC CATH. PT STATES THAT HIS WILL TAKE CARE OF IT TOMORROW. HE REPORTS AT HOME THEY ARE FLUSHING IT EVERY OTHER DAY AND IT WAS FLUSHED YESTERDAY.
[2023-09-02 19:04] VITALS: BP 112/76
--- NOTE | 2023-09-02 19:52 | NUR ---
SHIFT SUMMARY PT HAS TOLERATED CLEAR LIQUIDS T/O THE DAY. PT ADVANCED TO FULL LIQUIDS FOR DINNER AND TOLERATED WELL. NG TUBE OUT. PT HAS HAD ADEQUATE URINARY OUTPUT BUT URINE IS DARK YELLOW. DR. WHIPPLE AWARE, FLUIDS ENCOURAGED. DR. WHIPPLE NOTIFIED THAT PT REPORTED HE FELT LIKE TO RIGHT NEPHROSTOMY TUBE WAS PULLED THIS MORINING, PT'S REPORTS IT APPEARS TO BE IN THE SAME PLACE, PT IS PRODUCING URINE ON THE RIGHT SIDE, NOC RN NOTIFIED. BEDSIDE REPORT GIVEN TO NOC RN.
[2023-09-03 02:11] VITALS: BP 112/83
--- NOTE | 2023-09-03 04:44 | NUR ---
SHIFT SUMMARY PT ABLE TO SLEEP ALL NIGHT. DENIES ANY PAIN. TOLERATING PO INTAKE, HAVING GOOD OUTPUT IN NEPH'S. VSS. NO ACUTE CHANGES. NO OTHER CONCERNS AT THIS TIME. CALL LIGHT WITHIN REACH
[2023-09-03 04:46] LABS: BASOPHILS ABSOLUTE AUTO 0.02 K/mm3 (0.00-0.23); BASOPHILS PERCENT AUTO 0 % (0-2); EOSINOPHILS ABSOLUTE AUTO 0.11 K/mm3 (0.00-0.68); EOSINOPHILS PERCENT AUTO 2 % (0-6); Hematocrit 41.3 % (37.0-53.0); Hemoglobin 14.3 g/dL (13.5-17.5); IMMATURE GRAN ABSOLUTE AUTO 0.01 K/mm3 (0.00-0.10); IMMATURE GRAN PERCENT AUTO 0 % (0-1); LYMPHOCYTES ABSOLUTE AUTO 1.17 K/mm3 (0.84-5.20); LYMPHOCYTES PERCENT AUTO 22 % (21-46); MONOCYTES ABSOLUTE AUTO 0.55 K/mm3 (0.16-1.47); MONOCYTES PERCENT AUTO 10 % (4-13); Mean Corpuscular HGB 29.6 pg (26.0-34.0); Mean Corpuscular HGB Conc 34.6 g/dL (31.5-36.5); Mean Corpuscular Volume 86 fL (80-100); Mean Platelet Volume 9.8 fL (9.1-12.4); NEUTROPHILS ABSOLUTE AUTO 3.49 K/mm3 (1.96-9.15); NEUTROPHILS PERCENT AUTO 65 % (41-73); Platelet Count 188 K/mm3 (150-400); RDW Coefficient Variation 13.2 % (11.7-14.2); RDW Standard Deviation 41.2 fL (35.1-46.3); Red Blood Cell Count 4.83 M/mm3 (4.30-5.90); White Blood Cell Count 5.35 K/mm3 (4.00-11.30)
[2023-09-03 05:38] LABS: Bun/Creatinine Ratio 19.5 (12.0-20.0); Calcium, Blood 9.2 mg/dL (8.5-10.1); Creatinine, Blood 1.18 mg/dL (0.60-1.20); Potassium, Blood 3.7 mmol/L (3.5-5.5)
[2023-09-03 07:28] VITALS: BP 109/77
--- NOTE | 2023-09-03 12:21 | NUR ---
DISCHARGE: PACKET PRINTED AND PT EDUCATED. MED FAXED, PT VERBALIZED UNDERSTANDING. LEFT UNIT IN OWN WHEELCHAIR AT ABOUT 1130 WITH
== END 2023-09-03 11:35 | disposition home or self-care (01) | DRG 389 ==
LOC: ER 04:38 → SURS 11:12
PROVIDERS: Emergency Medicine; Internal Medicine; ADMIT Family Medicine
PROC: 0D9670Z Drainage of Stomach with Drainage Device, Via Natural or Artificial Opening (ICD-10-PCS; principal; 2023-08-28)
DX: K56.600 Partial intestinal obstruction, unspecified as to cause (principal); N17.9 Acute kidney failure, unspecified; N39.0 Urinary tract infection, site not specified; E86.0 Dehydration; Z79.891 Long term (current) use of opiate analgesic; H54.7 Unspecified visual loss; Z85.51 Personal history of malignant neoplasm of bladder; B96.89 Other specified bacterial agents as the cause of diseases classified elsewhere; I10 Essential (primary) hypertension; Z98.890 Other specified postprocedural states; Z93.6 Other artificial openings of urinary tract status; Z89.611 Acquired absence of right leg above knee; Z90.49 Acquired absence of other specified parts of digestive tract
CPT/HCPCS: 36415; 71045; 74176; 74177; 74250; 80048; 80053; 80069; 81001; 82330; 83605; 83690; 83735; 84100; 84145; 85025; 85651; 86140; 87040; 87086; 93005; 93010; 96365-59; 96375; 96376; 99285-25; A9270; C9113; J0360; J0696; J1170; J1644; J2270; J2405; J2765; J7030; Q9967

== ENCOUNTER → 2023-11-13 | Outpatient (CLI) | payer OTHER | END | disposition home or self-care (01) | LOC: LAB SHORT 15:01 → LAB EV 15:01 | DX: N39.0 Urinary tract infection, site not specified (principal) ==

== ENCOUNTER 2024-04-27 08:39 | Day surgery (SDC) | payer OTHER ==
[~2024-04-27] VITALS: Ht 185.4 cm; Wt 80.3 kg
[2024-04-27] VITALS (8 sets, daily range): BP systolic 167–188; BP diastolic 94–126
[~2024-04-27 08:39] MED LIST changes: +CIPR500 PO; +CYMBALTA20 M2 PO; +ERGO400 PO; +LOPE2C; +LOPE2C PO; +MULVITA PO; +OXYC5 PO; +SIME80CH; +TRAZ50 PO
[2024-04-27] MEDS ORDERED: Heparin Sodium 1000 Units/ML 10ML MDV ONE (09:23)
[2024-04-27] MEDS ORDERED: NS 1,000 ML IV ONE (09:23)
[2024-04-27] MEDS ORDERED: NS 500 ML IV ONE (09:23)
[2024-04-27] MEDS ORDERED: FentaNYL Citrate 50 MCG/ML 2 ML Injection ONE ×2 (09:38→10:00)
[2024-04-27] MEDS ORDERED: Midazolam HCl 1MG / ML 2ML Vial ONE ×2 (09:38→10:00)
[2024-04-27] MEDS ORDERED: HydrALAZINE HCl 20 MG / ML 1ML Vial ONE (10:15)
--- NOTE | 2024-04-27 10:29 | NUR ---
PT RETURNED TO RECOVERY ROOM IN BED. LEFT ABDOMEN BILIARY DRAIN SITE STABLE WITH INTACT DRESSING NO BLEEDING OR HEMATOMA. DR DANIEL IN ROOM TO SEE PT.
--- NOTE | 2024-04-27 10:30 | NUR ---
ADDITIONAL 10 MG IV HYDRALAZINE GIVEN PER VERBAL ORDER BY LISY BRITO IN THE RECOVERY ROOM.
--- NOTE | 2024-04-27 11:32 | NUR ---
NO CHANGES TO BILIARY DRAIN SITE. 20 G IV DISCONTINUED FROM R AC WITH INTACT CANNULA. DISCHARGE INSTRUCTIONS REVIEWED WITH PT AND ALL QUESTIONS ANSWERED. PT ESCORTED OUT VIA WHEELCHAIR ESCORT.
== END 2024-04-27 11:35 | disposition home or self-care (01) ==
LOC: MHTC 08:39
DX: Z43.6 Encounter for attention to other artificial openings of urinary tract (principal); C67.9 Malignant neoplasm of bladder, unspecified; I12.9 Hypertensive chronic kidney disease with stage 1 through stage 4 chronic kidney disease, or unspecified chronic kidney disease; N18.30 Chronic kidney disease, stage 3 unspecified; I70.0 Atherosclerosis of aorta; E78.5 Hyperlipidemia, unspecified; Z87.891 Personal history of nicotine dependence; Z79.899 Other long term (current) drug therapy
CPT/HCPCS: 50435; 99152; C1769; J0360; J1644; J2250; J3010; J7030; J7040; Q9967

== ENCOUNTER 2024-07-26 17:22 | Emergency (ER) | payer OTHER ==
[~2024-07-26] VITALS: Ht 188 cm; Wt 83.9 kg
[2024-07-26 17:36] VITALS: BP 137/98
[2024-07-26 18:02] LABS: BASOPHILS ABSOLUTE AUTO 0.01 K/mm3 (0.00-0.23); BASOPHILS PERCENT AUTO 0 % (0-2); EOSINOPHILS ABSOLUTE AUTO 0.05 K/mm3 (0.00-0.68); EOSINOPHILS PERCENT AUTO 1 % (0-6); Hematocrit 44.4 % (37.0-53.0); Hemoglobin 15.4 g/dL (13.5-17.5); IMMATURE GRAN ABSOLUTE AUTO 0.01 K/mm3 (0.00-0.10); IMMATURE GRAN PERCENT AUTO 0 % (0-1); LYMPHOCYTES ABSOLUTE AUTO 1.01 K/mm3 (0.84-5.20); LYMPHOCYTES PERCENT AUTO 16 % (21-46); MONOCYTES ABSOLUTE AUTO 0.52 K/mm3 (0.16-1.47); MONOCYTES PERCENT AUTO 8 % (4-13); Mean Corpuscular HGB 30.1 pg (26.0-34.0); Mean Corpuscular HGB Conc 34.7 g/dL (31.5-36.5); Mean Corpuscular Volume 87 fL (80-100); Mean Platelet Volume 9.1 fL (9.1-12.4); NEUTROPHILS ABSOLUTE AUTO 4.69 K/mm3 (1.96-9.15); NEUTROPHILS PERCENT AUTO 74 % (41-73); Platelet Count 205 K/mm3 (150-400); RDW Coefficient Variation 13.1 % (11.7-14.2); RDW Standard Deviation 41.1 fL (35.1-46.3); Red Blood Cell Count 5.11 M/mm3 (4.30-5.90); White Blood Cell Count 6.29 K/mm3 (4.00-11.30)
[2024-07-26 18:28] LABS: Albumin, Blood 3.7 g/dL (3.4-5.0); Albumin/Globulin Ratio 1.1 (0.8-1.8); Bilirubin, Total 0.4 mg/dL (0.1-1.0); Bun/Creatinine Ratio 21.8 (12.0-20.0); Calcium, Blood 8.8 mg/dL (8.5-10.1); Creatinine, Blood 1.24 mg/dL (0.60-1.20); Globulin, Blood 3.3 g/dL (2.2-4.0); Potassium, Blood 4.5 mmol/L (3.5-5.5)
== END 2024-07-26 21:14 | disposition left against medical advice (07) ==
LOC: ER 17:22
PROVIDERS: Student in an Organized Health Care Education/Training Program
DX: T83.9XXA Unspecified complication of genitourinary prosthetic device, implant and graft, initial encounter (principal); Z53.21 Procedure and treatment not carried out due to patient leaving prior to being seen by health care provider
CPT/HCPCS: 74177; 80053; 85025; Q9967